=== PATIENT | male | born 1980 | race Hispanic/Latino ===

== ENCOUNTER 2018-08-25 23:28 | Emergency (ER) | payer MEDICARE ==
[~2018-08-25] VITALS: Ht 167.6 cm; Wt 68.0 kg
--- OUTSIDE RECORDS SUMMARY | 2018-08-25 23:31 | XMS REPORT ---
Author Author [facility] Address Unknown Phone Unavailable Care Team Providers Care Clinical Trial Manager Name Role Phone Unavailable Unavailable Problems This patient has no known problems. Allergies, Adverse Reactions, Alerts This patient has no known allergies or adverse reactions. Medications This patient has no known medications. Encounters Start Date/Time End Date/Time Encounter Type Admission Type Attending Page [facility] Care Department Encounter ID 2018-08-14 00:50:11 Inpatient [facility] [id number] 2018-08-14 00:50:11 Inpatient [facility] [id number] 2018-08-13 22:13:00 2018-08-13 22:13:00 Emergency [facility] [id number] 2016-11-11 00:00:00 2016-11-12 00:00:00 [facility] [id number]
[2018-08-26 00:08] LABS: BASOPHILS # (AUTO) 0.1 (0.0-0.1); BASOPHILS % 0.9 % (0.0-1.0); EOSINOPHILS # (AUTO) 0.3 (0.0-0.4); EOSINOPHILS % 3.4 % (0.0-6.0); LYMPHOCYTES # (AUTO) 0.8 (1.0-3.2); LYMPHOCYTES % 9.2 % (18.0-39.1); MEAN CORPUSCULAR HEMOGLOBIN 33.2 pg (28-32); MEAN CORPUSCULAR HGB CONC 34.4 g/dL (31-35); MEAN CORPUSCULAR VOLUME 96.7 fL (81-99); MONOCYTES # (AUTO) 1.2 (0.2-0.8); MONOCYTES % 12.6 % (4.4-11.3); NEUTROPHILS # (AUTO) 6.7 (2.1-6.9); NEUTROPHILS % 73.7 % (38.7-80.0); PLATELET COUNT 227 x10e3/uL (140-360); RED BLOOD COUNT 3.31 x10e6/uL (4.3-5.7); RED CELL DISTRIBUTION WIDTH 13.8 % (11.7-14.4)
[2018-08-26 00:12] LABS: INR 1.05; PROTHROMBIN TIME 14.2 seconds (11.9-14.5)
[2018-08-26 00:30] LABS: ALBUMIN 3.6 g/dL (3.5-5.0); ALBUMIN/GLOBULIN RATIO 0.6 (0.8-2.0); CALCIUM 10.1 mg/dL (8.4-10.2); CREATININE, SERUM 6.91 mg/dL (0.72-1.25)
[2018-08-26] MEDS ORDERED: SODIUM CHLORIDE 0.9% 50ML 50 ML ONE (02:02)
[2018-08-26] MEDS ORDERED: IOPAMIDOL 370 MG/ML 200 ML INFUS..BTL INJ ONE (02:03)
--- NOTE | 2018-08-26 03:28 | Diagnostic Imaging Report ---
EXAM: CT Pelvis WITH contrast INDICATION: ^LEG SWELLING, PALPABLE LYMPH NODES ^[id number] ^0215 COMPARISON: None. TECHNIQUE: Pelvis were scanned utilizing a multidetector helical scanner from the iliac crest to the pubic symphysis after administration of IV contrast. Coronal and sagittal reformations were obtained. Routine protocol was performed. Scan was performed when during portal venous phase. IV CONTRAST: 100 mL of Isovue-370 ORAL CONTRAST: None. COMPLICATIONS: None RADIATION DOSE: Total DLP: 838.77 mGy*cm Estimated effective dose: (DLP x 0.015 x size factor) mSv CTDIvol has been reviewed. It is below the limits set by the Radiation Protocol Committee (RPC). FINDINGS: There is abdominal ascites. Large left inguinal hernia with extension of ascitic fluid into the scrotal sac. Visualized bowel loops are unremarkable. No evidence of bowel obstruction. Bladder is collapsed. No acute osseous fracture or dislocation. Sclerotic foci in the bilateral femoral intertrochanteric regions, right greater than left, likely bone islands. Mildly prominent inguinal and iliac chain lymph nodes without significant adenopathy. Minimal cutaneous edema. IMPRESSION: 1. Left inguinal hernia, containing large amount of ascitic fluid, extending to the scrotal sac. 2. No acute osseous abnormality. 3. Mild subcutaneous edema. 4. Mildly prominent inguinal and iliac chain lymph nodes, likely reactive. Signed by: Dr. Colby Deutsch MD on 08/26/2018 3:25 AM
--- NOTE | 2018-08-26 03:35 | Diagnostic Imaging Report ---
EXAM: CT left lower lobectomy WITH contrast INDICATION: ^LEG SWELLING, PALPABLE LYMPH NODES ^[id number] ^0215 COMPARISON: None. TECHNIQUE: Left lower extremity was scanned after administration of IV contrast. Coronal and sagittal reformations were obtained. IV CONTRAST: 100 mL of Isovue-370 ORAL CONTRAST: Water COMPLICATIONS: None RADIATION DOSE: Total DLP: 838.77 mGy*cm Estimated effective dose: (DLP x 0.015 x size factor) mSv CTDIvol has been reviewed. It is below the limits set by the Radiation Protocol Committee (RPC). FINDINGS: No acute fracture or dislocation of the left femur, tibia, fibula, and the visualized calcaneus and talus. No periosteal reaction or erosion. Trace suprapatellar joint effusion. Subcutaneous edema of the left lower extremity which increases distally, most severe in the distal leg and ankle. No drainable fluid collection. Patent left femoral artery, popliteal artery, and distal branches. Prominent left inguinal lymph nodes, the largest measuring 2.5 x 1.2 cm (series 315, image 34). Partially seen ascitic fluid within the scrotal sac and left inguinal canal. IMPRESSION: 1. Left lower extremity subcutaneous edema, increasing distally. 2. No drainable fluid collection. 3. Prominent left inguinal lymph nodes. 4. No acute osseous abnormality. Signed by: Dr. Colby Deutsch MD on 08/26/2018 3:32 AM
[2018-08-26] MEDS ORDERED: LASIX40 MG PO (03:54)
[2018-08-26] MEDS ORDERED: CLINDAMYCIN HC300 MG PO (03:57)
[2018-08-26 04:02] VITALS: BP 140/93
== END 2018-08-26 04:15 | disposition home or self-care (01) ==
LOC: ER 23:28
DX: M79.662 Pain in left lower leg (principal); L03.116 Cellulitis of left lower limb; R60.0 Localized edema; I12.0 Hypertensive chronic kidney disease with stage 5 chronic kidney disease or end stage renal disease; N18.6 End stage renal disease; Z99.2 Dependence on renal dialysis
CPT/HCPCS: 36415; 72193; 73701; 80053; 85025; 85610; 87040; 93971; 99284; Q9967